=== PATIENT | male | born 1985 | race Hispanic/Latino ===

== ENCOUNTER 2016-12-30 07:08 | Emergency (ER) | payer OTHER ==
[2016-12-30] MEDS ORDERED: KETOROLAC 30 MG/ML VIAL (J1885) As Ordered ONE (07:49)
--- NOTE | 2016-12-30 08:29 | EDDOCDS ---
Physician Documentation [facility] Name: Mook Mendez Age: 31 yrs Sex: Male : 1985 Arrival Date: 12/30/2016 Time: 07:08 Bed I5 / M5 Private MD: Disposition: 12/30/16 08:05 Discharged to Home/Self Care. Impression: Headache, Acute frontal sinusitis - RIGHT, Acute maxillary sinusitis. - Condition is Stable. - Discharge Instructions: Sinus Headache, Tension Headache, [id number]. - Prescriptions for azelastine 137 mcg (0.1 %) Nasal Aerosol, [place] - spray 2 spray by INTRANASAL route 2 times per day each nostril; 1 bottle. - Medication Reconciliation, Local Pharmacy Hours form. - Follow up: Allen Herbert [facility]; When: Today; Reason: Further diagnostic work-up, Recheck today's complaints, Continuance of care. - Problem is an acute exacerbation. - Symptoms are unchanged. Historical: - Allergies: No known drug Allergies; - Home Meds: 1. amitriptyline 100 mg Oral tab 1 tab nightly (Last dose: 12/28/2016) 2. Phenergan 25 mg Oral tab 1 tab PRN (Last dose: 12/30/2016 04:00) 3. Zomig 5 mg oral tab 1 tab PRN (Last dose: 12/30/2016 04:00) - PMHx: Migraine Headaches; Arthritis; - PSHx: glass removed from neck; - Social history: Smoking status: Patient uses tobacco products, heavy tobacco smoker. No barriers to communication noted, The patient speaks fluent Niuean, Speaks appropriately for age. - Family history: Not pertinent. - : The pt / caregiver states he / she is not on anticoagulants. Home medication list is obtained from the patient. - Exposure Risk Screening:: None identified. Vital Signs: 12/30 07:14 BP 136 / 76; Pulse 80; Resp 18; Temp 97.6(O); Pulse Ox 97% on R/A; Weight 87.09 kg / ck1 192 lbs (R); Height 66 in. (167.64 cm) (R); Pain 10/10; 08:27 BP 143 / 83; Pulse 68; Resp 16; Temp 97.5; jmk 07:14 Body Mass Index 30.99 (87.09 kg, 167.64 cm) ck1 MDM: 07:45 ketorolac 30 mg IM once ordered. btw Administered Medications: 07:53 Drug: ketorolac 30 mg [ketorolac 30 mg/mL (1 mL) injection solution (1 mL)] Route: IM; robbin Site: right gluteus; Signatures: Arthur Olvera RN RN jmk Jessy Mckenzie RN RN ck1 Diaz Sam PA PA btw MTDD
--- NOTE | 2016-12-30 08:29 | EDDOCDS ---
Nurse's Notes [facility] Name: Mook Mendez Age: 31 yrs Sex: Male : 1985 Arrival Date: 12/30/2016 Time: 07:08 Bed I5 / M5 Private MD: Diagnosis: Headache;Acute frontal sinusitis-RIGHT;Acute maxillary sinusitis Presentation: 12/30 07:13 Presenting complaint: Patient states: "feeling sick, sore", migraine with nausea since ck1 0400. This patient has no additional risk factors. Adult Sepsis Screening: The patient does not have new or worsening altered mentation. Patient's respiratory rate is less than 22. Systolic blood pressure is greater than 100. Patient has a qSOFA score of 0- Negative Sepsis Screen. Suicide/Homicide risk assessment- the patient denies having any suicidal and/or homicidal ideations and does not present with any other emotional, behavioral or mental health complaints. Status: The patient is an active duty patient services technician. Transition of care: patient was not received from another setting of care. 07:13 Method Of Arrival: Walkin/Carried/Asstd ck1 07:13 Acuity: CONCEPCION Level 3 ck1 Triage Assessment: 07:18 Headache History: This patient has a history of headaches and the character of this ck1 headache is like all previous headaches. General: Appears in no apparent distress, comfortable, Behavior is appropriate for age, cooperative. Pain: Location: head Pain currently is 10 out of 10 on a pain scale. Pain began 3 hours ago Also complains of nausea, photophobia. HIV screening NA for this visit Offered previously. Neurological: Level of Consciousness is awake, alert, obeys commands, Oriented to person, place, time. Respiratory: Airway is patent Respiratory effort is unlabored, Respiratory pattern is regular, symmetrical. GI: Reports nausea. Derm: Skin is pink, warm & dry. Historical: - Allergies: No known drug Allergies; - Home Meds: 1. amitriptyline 100 mg Oral tab 1 tab nightly (Last dose: 12/28/2016) 2. Phenergan 25 mg Oral tab 1 tab PRN (Last dose: 12/30/2016 04:00) 3. Zomig 5 mg oral tab 1 tab PRN (Last dose: 12/30/2016 04:00) - PMHx: Migraine Headaches; Arthritis; - PSHx: glass removed from neck; - Social history: Smoking status: Patient uses tobacco products, heavy tobacco smoker. No barriers to communication noted, The patient speaks fluent Anguillan, Speaks appropriately for age. - Family history: Not pertinent. - : The pt / caregiver states he / she is not on anticoagulants. Home medication list is obtained from the patient. - Exposure Risk Screening:: None identified. Screenin:38 Screening information is obtained from the patient. Fall risk: No risks identified. [facility] Assistance ADL's: requires no assistance with activities of daily living. Abuse/DV Screen: The patient / caregiver reports he/she is: not in a situation that causes fear, pain or injury. Nutritional screening: No deficits noted. Advance Directives: Currently, there is no health care proxy. There is no active DNR order. home support is adequate. Assessment: 07:38 General: Appears in no apparent distress, wearing sunglasses and actively talking on [facility] cell phone. Indicates discomfort to top of head that goes into occipital region. Ice provided for comfort, but immediately discounted effectiveness.. Pain: Location: top of head, left frontal area, left side of the back of head, left occipital area, right frontal area, right side of the back of head and right occipital area. 08:25 General: Appears in no apparent distress, state pain has decreased to 8/10. remains [facility] alert and oriented x 3.. Vital Signs: 07:14 BP 136 / 76; Pulse 80; Resp 18; Temp 97.6(O); Pulse Ox 97% on R/A; Weight 87.09 kg (R); ck1 Height 66 in. (167.64 cm) (R); Pain 10/10; 08:27 BP 143 / 83; Pulse 68; Resp 16; Temp 97.5; jmk 07:14 Body Mass Index 30.99 (87.09 kg, 167.64 cm) [facility] Vitals: 07:14 Log In Time: December 30, 2016 at 07:10. [facility] ED Course: 07:10 Patient visited by Brooke Lopez, Reg. hs2 07:10 Patient moved to Waiting hs2 07:14 Triage Initiated ck1 07:19 Patient moved to I5 / ck1 07:38 Diaz Sam PA is PHCP. btw 07:38 Anuj Moise MD is Attending Physician. btw 07:38 Patient visited by Diaz Sam PA. btw 07:38 The patient / caregiver is instructed regarding the plan of care and ED course. robbin 08:04 Allen Herbert [facility] is Referral Physician. btw 08:25 No IV's were initiated during this patient's visit. No procedures done that require jmk assistance. Administered Medications: 07:53 Drug: ketorolac 30 mg [ketorolac 30 mg/mL (1 mL) injection solution (1 mL)] Route: IM; jmk Site: right gluteus; Order Results: There are currently no results for this order. Outcome: 08:05 Discharge ordered by Provider. btw 08:25 Discharge Assessment: Patient awake, alert and oriented x 3. No cognitive and/or jmk functional deficits noted. Patient verbalized understanding of disposition instructions. patient administered narcotics - no. The following High Risk Discharge criteria are identified: None. Discharged to home ambulatory. Condition: good. Discharge instructions given to patient, Instructed on discharge instructions, follow up and referral plans. medication usage, Demonstrated understanding of instructions, medications, Pt was receptive of discharge instructions/ teaching. Prescriptions given X 1. No special radiology studies were completed. Property :Personal belongings accompany Pt. 08:28 Patient left the ED. robbin Signatures: Arthur Olvera,RN RN Jessy Raines RN RN ck1 Diaz Sam PA PA btw Stanton, Hillary, Reg Reg hs2 MTDD
--- NOTE | 2017-01-01 09:28 | EDDOCDS ---
Physician Documentation [facility] Name: Mook Mendez Age: 31 yrs Sex: Male : 1985 Arrival Date: 12/30/2016 Time: 07:08 Bed I5 / M5 Private MD: Disposition: 12/30/16 08:05 Discharged to Home/Self Care. Impression: Headache, Acute frontal sinusitis - RIGHT, Acute maxillary sinusitis. - Condition is Stable. - Discharge Instructions: Sinus Headache, Tension Headache, [id number]. - Prescriptions for azelastine 137 mcg (0.1 %) Nasal Aerosol, [place] - spray 2 spray by INTRANASAL route 2 times per day each nostril; 1 bottle. - Medication Reconciliation, Local Pharmacy Hours form. - Follow up: Allen Herbert [facility]; When: Today; Reason: Further diagnostic work-up, Recheck today's complaints, Continuance of care. - Problem is an acute exacerbation. - Symptoms are unchanged. Historical: - Allergies: No known drug Allergies; - Home Meds: 1. amitriptyline 100 mg Oral tab 1 tab nightly (Last dose: 12/28/2016) 2. Phenergan 25 mg Oral tab 1 tab PRN (Last dose: 12/30/2016 04:00) 3. Zomig 5 mg oral tab 1 tab PRN (Last dose: 12/30/2016 04:00) - PMHx: Migraine Headaches; Arthritis; - PSHx: glass removed from neck; - Social history: Smoking status: Patient uses tobacco products, heavy tobacco smoker. No barriers to communication noted, The patient speaks fluent [place], Speaks appropriately for age. - Family history: Not pertinent. - : The pt / caregiver states he / she is not on anticoagulants. Home medication list is obtained from the patient. - Exposure Risk Screening:: None identified. Vital Signs: 12/30 07:14 BP 136 / 76; Pulse 80; Resp 18; Temp 97.6(O); Pulse Ox 97% on R/A; Weight 87.09 kg / ck1 192 lbs (R); Height 66 in. (167.64 cm) (R); Pain 10/10; 08:27 BP 143 / 83; Pulse 68; Resp 16; Temp 97.5; jmk 07:14 Body Mass Index 30.99 (87.09 kg, 167.64 cm) ck1 MDM: 07:45 ketorolac 30 mg IM once ordered. btw 09:26 Financial registration complete. mm15 09:26 [facility] Payment Agreement was scanned into [employer] and attached to record. 12/31 12:50 T-Sheet-- Draft Copy was scanned into [employer] and attached to record. gb Administered Medications: 12/30 07:53 Drug: ketorolac 30 mg [ketorolac 30 mg/mL (1 mL) injection solution (1 mL)] Route: IM; robbin Site: right gluteus; Signatures: Arthur Olvera,RN RN jmk Di Tirado, Reg Reg Jessy PostRN RN ck1 Diaz Sam PA PA btw Leticia Randolph The chart was reviewed and I authenticate all verbal orders and agree with the evaluation and treatment provided.Attachments: :26 [facility] Payment Agreement mm12/31 12:50 T-Sheet-- Draft Copy gb Chart Complete MTDD
--- NOTE | 2017-01-01 09:28 | EDDOCDS ---
Physician Documentation [facility] Name: Mook Mendez Age: 31 yrs Sex: Male : 1985 Arrival Date: 12/30/2016 Time: 07:08 Bed I5 / M5 Private MD: Disposition: 12/30/16 08:05 Discharged to Home/Self Care. Impression: Headache, Acute frontal sinusitis - RIGHT, Acute maxillary sinusitis. - Condition is Stable. - Discharge Instructions: Sinus Headache, Tension Headache, [id number]. - Prescriptions for azelastine 137 mcg (0.1 %) Nasal Aerosol, [place] - spray 2 spray by INTRANASAL route 2 times per day each nostril; 1 bottle. - Medication Reconciliation, Local Pharmacy Hours form. - Follow up: Allen Herbert [facility]; When: Today; Reason: Further diagnostic work-up, Recheck today's complaints, Continuance of care. - Problem is an acute exacerbation. - Symptoms are unchanged. Historical: - Allergies: No known drug Allergies; - Home Meds: 1. amitriptyline 100 mg Oral tab 1 tab nightly (Last dose: 12/28/2016) 2. Phenergan 25 mg Oral tab 1 tab PRN (Last dose: 12/30/2016 04:00) 3. Zomig 5 mg oral tab 1 tab PRN (Last dose: 12/30/2016 04:00) - PMHx: Migraine Headaches; Arthritis; - PSHx: glass removed from neck; - Social history: Smoking status: Patient uses tobacco products, heavy tobacco smoker. No barriers to communication noted, The patient speaks fluent Serbian, Speaks appropriately for age. - Family history: Not pertinent. - : The pt / caregiver states he / she is not on anticoagulants. Home medication list is obtained from the patient. - Exposure Risk Screening:: None identified. Vital Signs: 12/30 07:14 BP 136 / 76; Pulse 80; Resp 18; Temp 97.6(O); Pulse Ox 97% on R/A; Weight 87.09 kg / ck1 192 lbs (R); Height 66 in. (167.64 cm) (R); Pain 10/10; 08:27 BP 143 / 83; Pulse 68; Resp 16; Temp 97.5; jmk 07:14 Body Mass Index 30.99 (87.09 kg, 167.64 cm) ck1 MDM: 07:45 ketorolac 30 mg IM once ordered. btw 09:26 Financial registration complete. mm15 09:26 [facility] Payment Agreement was scanned into [employer] and attached to record. 12/31 12:50 T-Sheet-- Draft Copy was scanned into [employer] and attached to record. gb Administered Medications: 12/30 07:53 Drug: ketorolac 30 mg [ketorolac 30 mg/mL (1 mL) injection solution (1 mL)] Route: IM; robbin Site: right gluteus; Signatures: Arthur Olvera,RN RN jmk Di Tirado, Reg Reg Jessy PostRN RN ck1 Diaz Sam PA PA btw Leticia Randolph The chart was reviewed and I authenticate all verbal orders and agree with the evaluation and treatment provided.Attachments: :26 [facility] Payment Agreement mm12/31 12:50 T-Sheet-- Draft Copy gb Chart Complete MTDD
--- NOTE | 2017-01-01 09:28 | EDDOCDS ---
Nurse's Notes [facility] Name: Mook Mendez Age: 31 yrs Sex: Male : 1985 Arrival Date: 12/30/2016 Time: 07:08 Bed I5 / M5 Private MD: Diagnosis: Headache;Acute frontal sinusitis-RIGHT;Acute maxillary sinusitis Presentation: 12/30 07:13 Presenting complaint: Patient states: "feeling sick, sore", migraine with nausea since ck1 0400. This patient has no additional risk factors. Adult Sepsis Screening: The patient does not have new or worsening altered mentation. Patient's respiratory rate is less than 22. Systolic blood pressure is greater than 100. Patient has a qSOFA score of 0- Negative Sepsis Screen. Suicide/Homicide risk assessment- the patient denies having any suicidal and/or homicidal ideations and does not present with any other emotional, behavioral or mental health complaints. 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 Transition of care: patient was not received from another setting of care. 07:13 Method Of Arrival: Walkin/Carried/Asstd ck1 07:13 Acuity: CONCEPCION Level 3 ck1 Triage Assessment: 07:18 Headache History: This patient has a history of headaches and the character of this ck1 headache is like all previous headaches. General: Appears in no apparent distress, comfortable, Behavior is appropriate for age, cooperative. Pain: Location: head Pain currently is 10 out of 10 on a pain scale. Pain began 3 hours ago Also complains of nausea, photophobia. HIV screening NA for this visit Offered previously. Neurological: Level of Consciousness is awake, alert, obeys commands, Oriented to person, place, time. Respiratory: Airway is patent Respiratory effort is unlabored, Respiratory pattern is regular, symmetrical. GI: Reports nausea. Derm: Skin is pink, warm & dry. Historical: - Allergies: No known drug Allergies; - Home Meds: 1. amitriptyline 100 mg Oral tab 1 tab nightly (Last dose: 12/28/2016) 2. Phenergan 25 mg Oral tab 1 tab PRN (Last dose: 12/30/2016 04:00) 3. Zomig 5 mg oral tab 1 tab PRN (Last dose: 12/30/2016 04:00) - PMHx: Migraine Headaches; Arthritis; - PSHx: glass removed from neck; - Social history: Smoking status: Patient uses tobacco products, heavy tobacco smoker. No barriers to communication noted, The patient speaks fluent Uzbek, Speaks appropriately for age. - Family history: Not pertinent. - : The pt / caregiver states he / she is not on anticoagulants. Home medication list is obtained from the patient. - Exposure Risk Screening:: None identified. Screenin:38 Screening information is obtained from the patient. Fall risk: No risks identified. [facility] Assistance ADL's: requires no assistance with activities of daily living. Abuse/DV Screen: The patient / caregiver reports he/she is: not in a situation that causes fear, pain or injury. Nutritional screening: No deficits noted. Advance Directives: Currently, there is no health care proxy. There is no active DNR order. home support is adequate. Assessment: 07:38 General: Appears in no apparent distress, wearing sunglasses and actively talking on [facility] cell phone. Indicates discomfort to top of head that goes into occipital region. Ice provided for comfort, but immediately discounted effectiveness.. Pain: Location: top of head, left frontal area, left side of the back of head, left occipital area, right frontal area, right side of the back of head and right occipital area. 08:25 General: Appears in no apparent distress, state pain has decreased to 8/10. remains [facility] alert and oriented x 3.. Vital Signs: 07:14 BP 136 / 76; Pulse 80; Resp 18; Temp 97.6(O); Pulse Ox 97% on R/A; Weight 87.09 kg (R); ck1 Height 66 in. (167.64 cm) (R); Pain 10/10; 08:27 BP 143 / 83; Pulse 68; Resp 16; Temp 97.5; jmk 07:14 Body Mass Index 30.99 (87.09 kg, 167.64 cm) [facility] Vitals: 07:14 Log In Time: December 30, 2016 at 07:10. [facility] ED Course: 07:10 Patient visited by Brooke Lopez, Reg. hs2 07:10 Patient moved to Waiting hs2 07:14 Triage Initiated ck1 07:19 Patient moved to I5 / ck1 07:38 Diaz Sam PA is PHCP. btw 07:38 Anuj Moise MD is Attending Physician. btw 07:38 Patient visited by Diaz Sam PA. btw 07:38 The patient / caregiver is instructed regarding the plan of care and ED course. robbin 08:04 Allen Herbert [facility] is Referral Physician. btw 08:25 No IV's were initiated during this patient's visit. No procedures done that require jmk assistance. 09:26 [facility] Payment Agreement was scanned into [employer] and attached to record. mm15 10:09 Patient name changed from Mook\\S\\\\S\\Ursua\\S\\ to Mook\\S\\ \\S\\Ursua. EDMS 12/31 12:50 T-Sheet-- Draft Copy was scanned into [employer] and attached to record. gb Administered Medications: 12/30 07:53 Drug: ketorolac 30 mg [ketorolac 30 mg/mL (1 mL) injection solution (1 mL)] Route: IM; k Site: right gluteus; Order Results: There are currently no results for this order. Outcome: 08:05 Discharge ordered by Provider. btw 08:25 Discharge Assessment: Patient awake, alert and oriented x 3. No cognitive and/or k functional deficits noted. Patient verbalized understanding of disposition instructions. patient administered narcotics - no. The following High Risk Discharge criteria are identified: None. Discharged to home ambulatory. Condition: good. Discharge instructions given to patient, Instructed on discharge instructions, follow up and referral plans. medication usage, Demonstrated understanding of instructions, medications, Pt was receptive of discharge instructions/ teaching. Prescriptions given X 1. No special radiology studies were completed. Property :Personal belongings accompany Pt. 08:28 Patient left the ED. robbin Signatures: Dispatcher [employer] EDKS Arthur Olvera,Di Cooper RN, Reg Reg gb Jessy Mckenzie RN RN ck1 Diaz Sam PA PA btw Leticia Randolph mm15 Brooke Lopez, Reg Reg hs2 Chart Complete MTDD
== END 2016-12-30 08:28 | disposition home or self-care (01) ==
LOC: M ED 07:08
DX: R51 Headache (principal); J01.00 Acute maxillary sinusitis, unspecified; J01.10 Acute frontal sinusitis, unspecified; M12.9 Arthropathy, unspecified; F17.210 Nicotine dependence, cigarettes, uncomplicated; Z79.899 Other long term (current) drug therapy
CPT/HCPCS: 96372; 99283; J1885

== ENCOUNTER 2017-05-27 06:24 | Emergency (ER) | payer OTHER ==
[~2017-05-27] VITALS: Ht 167.6 cm; Wt 86.0 kg
[2017-05-27] MEDS ORDERED: ONDANSETRON 4MG/2ML VIAL (J2405) IV ONE (07:00)
[2017-05-27] MEDS ORDERED: MORPHINE 4 MG/ML 1ML SYRINGE IV ONE (07:00)
[2017-05-27] MEDS ORDERED: KETOROLAC 30 MG/ML VIAL (J1885) IV ONE (07:00)
[2017-05-27] MEDS ORDERED: METOCLOPRAMIDE INJ 10MG/2ML VIAL (J2765) IV ONE (07:45)
[2017-05-27] MEDS ORDERED: diphenhydrAMINE INJ 50MG/ML VIAL (J1200) IV ONE (07:45)
[2017-05-27] MEDS ORDERED: ZOFR4TAB3 PO (09:13)
[2017-05-27] MEDS ORDERED: NORCOTAB PO (09:13)
[2017-05-27] MEDS ORDERED: NORCO, ANEXSIA 5/325MG TABLET (HYDROcodone/ACETAMINOPHEN) PO ONE (09:15)
[2017-05-27 10:43] VITALS: BP 134/88
== END 2017-05-27 10:45 | disposition home or self-care (01) ==
LOC: M ED 06:24
DX: G43.909 Migraine, unspecified, not intractable, without status migrainosus (principal); R11.0 Nausea; F17.200 Nicotine dependence, unspecified, uncomplicated; Z88.6 Allergy status to analgesic agent
CPT/HCPCS: 96374; 96375; 99283; J1200; J1885; J2405; J2765

== ENCOUNTER 2018-01-29 03:15 | Emergency (ER) | payer OTHER ==
[2018-01-29] MEDS: dexameTHASONE 20 MG/5 ML VIAL (J1100) IV (04:43)
[2018-01-29] MEDS: KETOROLAC 30 MG/ML VIAL (J1885) IV (04:43)
[2018-01-29] MEDS: METOCLOPRAMIDE INJ 10MG/2ML VIAL (J2765) IV (04:43)
== END 2018-01-29 06:29 | disposition home or self-care (01) ==
LOC: M ED 03:15
DX: G43.709 Chronic migraine without aura, not intractable, without status migrainosus (principal); F43.10 Post-traumatic stress disorder, unspecified; F17.210 Nicotine dependence, cigarettes, uncomplicated; Z79.899 Other long term (current) drug therapy; Z87.39 Personal history of other diseases of the musculoskeletal system and connective tissue; Z88.8 Allergy status to other drugs, medicaments and biological substances
CPT/HCPCS: J1100

== ENCOUNTER 2018-03-19 22:51 | Emergency (ER) | payer OTHER ==
[2018-03-20] LABS: BASO # 0.1 10^3/uL (0.0-0.2); BASO % 0.5 % (0.0-1.0); EOS # 0.4 10^3/uL (0.0-0.50); EOS % 3.3 % (0.0-3.0); HEMATOCRIT 49.1 % (42.0-52.0); IMMATURE GRANULOCYTE % 0.5 % (0-3.0); LYMPH # 3.9 10^3/uL (1.5-4.5); LYMPH % 31.5 % (24.0-44.0); MEAN CORPUSCULAR HEMOGLOBIN 30.1 pg (27.0-33.0); MEAN CORPUSCULAR HGB CONC 34.6 g/dl (32.0-36.5); MEAN CORPUSCULAR VOLUME 86.9 fl (80.0-96.0); MONO # 1.4 10^3/uL (0.0-0.8); NEUTROPHILS # 6.6 10^3/uL (1.8-7.7); NEUTROPHILS % 53.2 % (36.0-66.0); PLATELET COUNT, AUTOMATED 249 10^3/uL (150-450); RED BLOOD COUNT 5.65 10^6/uL (4.30-6.10); RED CELL DISTRIBUTION WIDTH 11.8 % (11.5-14.5); WHITE BLOOD COUNT 12.4 10^3/uL (4.0-10.0)
[2018-03-20 00:17] LABS: ANION GAP 8 MEQ/L (8-16); BLOOD UREA NITROGEN 20 MG/DL (7-18); CALCIUM LEVEL 8.7 MG/DL (8.5-10.1); CARBON DIOXIDE LEVEL 27 MEQ/L (21-32); CHLORIDE LEVEL 108 MEQ/L (98-107); GLOMERULAR FILTRATION RATE > 60.0 (>60); GLUCOSE, FASTING 88 MG/DL (70-100); POTASSIUM SERUM 4.3 MEQ/L (3.5-5.1); SODIUM LEVEL 143 MEQ/L (136-145)
[2018-03-20] MEDS: NS 1,000 ML IV (00:27)
[2018-03-20] MEDS: methylPREDNISolone INJ 125 MG/2 ML VIAL (J2930) IV (00:29)
[2018-03-20] MEDS: FAMOTIDINE INJ 20MG/2ML VIAL (S0028) IVP (00:30)
[2018-03-20] MEDS: diphenhydrAMINE INJ 50MG/ML VIAL (J1200) IV (00:32)
== END 2018-03-20 03:56 | disposition home or self-care (01) ==
LOC: M ED 22:51
DX: L50.9 Urticaria, unspecified (principal); I10 Essential (primary) hypertension; F43.10 Post-traumatic stress disorder, unspecified; F32.9 Major depressive disorder, single episode, unspecified; G43.909 Migraine, unspecified, not intractable, without status migrainosus; F17.200 Nicotine dependence, unspecified, uncomplicated; Z79.899 Other long term (current) drug therapy; Z88.6 Allergy status to analgesic agent
CPT/HCPCS: J1200

== ENCOUNTER 2018-11-23 14:13 | Emergency (ER) | payer OTHER ==
[~2018-11-23] VITALS: Ht 167.6 cm; Wt 82.3 kg
[~2018-11-23 14:13] MED LIST: GABA-845; HYDR-3363; NORCOTAB PO; PRAZ1CAP; PROM25TA; TIZA2TA; TOPI25TA10; TRAZ-160; ZOFR4TAB14 PO; ZOLM5TAB2; ZOLO100T; ZOMI5TAB2
[2018-11-23] MEDS ORDERED: KETOROLAC TROMETHAMINE 10 MG TAB PO ONE (16:30)
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
[2018-11-23] MEDS ORDERED: KETO10TAB PO (17:21)
[2018-11-23] MEDS ORDERED: BACL10TA2 PO (17:21)
[2018-11-23 17:32] VITALS: BP 131/73
== END 2018-11-23 17:34 | disposition home or self-care (01) ==
LOC: M ED 14:13
DX: M54.2 Cervicalgia (principal); M54.6 Pain in thoracic spine; M25.552 Pain in left hip; V49.49XA Driver injured in collision with other motor vehicles in traffic accident, initial encounter; Y92.410 Unspecified street and highway as the place of occurrence of the external cause; I10 Essential (primary) hypertension; F43.10 Post-traumatic stress disorder, unspecified; Z79.899 Other long term (current) drug therapy; Z88.8 Allergy status to other drugs, medicaments and biological substances

== ENCOUNTER 2021-12-10 13:01 | Emergency (ER) | payer OTHER ==
[~2021-12-10] VITALS: Ht 167.6 cm; Wt 88.6 kg
[~2021-12-10 13:01] MED LIST changes: +BACL10TA2 PO; +GABA-283; -GABA-845; +HYDR-3715 PO; +KETO10TAB PO; -NORCOTAB PO; -PROM25TA; +PROM25TA12; -TRAZ-160; +TRAZ-252; +ZOLM5TAB14; -ZOLM5TAB2
[2021-12-10 13:03] VITALS: BP 130/89
[2021-12-10] MEDS ORDERED: KETOROLAC 30 MG/ML 1ML VIAL IM ONE (17:05)
== END 2021-12-10 18:11 | disposition home or self-care (01) ==
LOC: M ED 13:01
DX: U07.1 COVID-19 (principal); R51.9 Headache, unspecified; F17.200 Nicotine dependence, unspecified, uncomplicated; Z20.822 Contact with and (suspected) exposure to COVID-19; Z88.6 Allergy status to analgesic agent
CPT/HCPCS: 96372; 99283; J1885